=== PATIENT | male | born 1930 | race Caucasian/White ===

== ENCOUNTER 2016-09-21 10:10 | Inpatient (IN) | payer MEDICARE, BC ==
[2016-09-21] MEDS ORDERED: ALBUTEROL SULFATE 2.5 MG/0.5 ML VIAL.NEB IH ONE ×2 (10:18→10:20)
--- NOTE | 2016-09-21 10:20 | ERNOTE ---
[id number] home records Exam Limitations: physical impairment, dementia - Immun/Allergies/Home Medications Immunizations: IMMUNIZATION HX Immunizations Up to Date Yes History of Influenza Vaccine Yes Hx Pneumococcal Vaccination Yes Allergies/Adverse Reactions: Allergies Sulfa (Sulfonamide Antibiotics) Allergy (Severe, Verified 09/21/16 13:50) Hives promethazine HCl [From Phenergan] Allergy (Mild, Verified 09/21/16 13:50) Itching Iodinated Contrast Media - IV Dye Allergy (Unknown, Verified 09/21/16 13:50) Home Medications: HOME MEDICATIONS Acetaminophen [Tylenol 160 MG/5 Ml Liquid] 15 ml PEG Q6H 06/05/16 [Last Taken Unknown] Donepezil HCl [Aricept] 10 mg PEG DAILY 06/05/16 [Last Taken Unknown] L. 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 He has a PEG tube for feeding. He started vomiting yesterday? This morning at 08:00 he vomited and aspirated. Oxygen saturations were in the 70% after suctioning up to 80's. Per EMS he vomited one more time on their arrival, non since coming here. Date (Duration): 09/21/16 Time (Timing): 08:00 Review of Systems - Narrative Narrative: unobtainable - Patient's Past Medical History Patient History - Medical: Dementia Patient History - Cardiac/Respiratory: No pertinent hx, CVA/Stroke, Hypertension , Pneumonia Patient History - Cancer: No Hx of Cancer Patient History - Surgical Procedures: Other - Family History Mother Family History - Medical: , History Unknown Family History - Cardiac/Respiratory: No pertinent hx Family History - Cancer: Colon - 83 Father Family History - Medical: , History Unknown Family History - Cardiac/Respiratory: No pertinent hx Family History - Cancer: Lung - 85 - Social History Living Situations: detention Does anyone smoke in the home?: No Alcohol Use: none Drug Use: none - Immunizations Immunizations Up to Date: Yes Physical Exam - Physical Exam General Appearance: Present: wd/wn, alert, anxious Eye Exam: Normal inspection: bilateral, PERRL: bilateral Ears, Nose, Throat: Present: normal pharynx Respiratory: Present: rales, other - increased respiratory rate, rales audible on entering the room Cardiovascular/Chest: Present: regular rate, rhythm, no murmur Gastrointestinal/Abdominal: Present: soft, abnormal bowel sounds - decreased. Absent: guarding Neurological Exam: Present: alert, other - non verbal, occasionally following with his eyes, non following commands, moves all extremities Skin Exam: Present: normal color, warm/dry ED Progress - Results and Orders Patient's Lab Results:: I have reviewed the patient's lab results. - Vital Signs Patient's Vital Signs:: I have reviewed the patient's vital signs. - X-Ray X-Ray #1 X-Ray: chest - bibasilar opacities Interpretation: Reviewed by me X-Ray #2 X-Ray: abdomen - abnormal bowel gas pattern, possible ileus Interpretation: Reviewed by me - Progress/Reassessment Progress Note-Subjective: 09/21/16 10:37 after albuterol treatment and suctioning, )2sat 93% on nonrebreather 09/21/16 10:55 O2sat 89% on 50% mask discussed with family 09/21/16 11:18 discussed ABG, prognosis, and BiPAP with family, agreed to Bipap, discussed code status son and daughter (present) want to discuss further with other daughter 09/21/16 11:29 discussed with suzie Ahmadi to admit for aspiration pneumonia Departure Clinical Impression: Aspiration pneumonia Qualifiers: Aspiration pneumonia type: due to gastric secretions Laterality: right Lung location: unspecified part of lung Qualified Code(s): J69.0 - Pneumonitis due to inhalation of food and vomit Acute respiratory failure Qualifiers: Respiratory failure complication: hypoxia and hypercapnia Qualified Code(s): J96.01 - Acute respiratory failure with hypoxia - Departure Disposition: [facility] Condition: Fair
[2016-09-21 10:37] LABS: Hematocrit 48.1 % (42.0-52.0); Hemoglobin 15.3 gm/dL (13.5-18.0); Mean Cell Volume 93.2 fl (78-100); Mean Corpuscular Hemoglobin 29.7 pg (27-31); Mean Corpuscular Hgb Conc 31.8 g/dl (32-36); Mean Platelet Volume 10.3 fl (6.0-9.5); Neutrophil # 16.3 K/mm3 (1.3-6.0); Neutrophil % 83.9 % (42-75.0); Platelet Count 323 K/mm3 (150-450); Red Blood Count 5.16 M/mm3 (4.7-6.0); Red Cell Distribution Width 13.1 % (11.5-14.0); White Blood Count 19.4 K/mm3 (4.0-10.5)
[2016-09-21 10:55] LABS: Albumin * 3.5 gm/dl (3.4-5.0); Anion Gap 13.1 mmol/L (6.8-13.8); BUN/Creatinine Ratio 19.6 (9.0-21.6); Bilirubin, Total 0.5 mg/dL (0.0-1.1); Ca. Corrected For Albumin 9.1 mg/dL (8.4-10.2); Potassium 4.1 mmol/L (3.4-4.6); Total Protein 8.4 gm/dL (6.2-8.2)
[2016-09-21] MEDS ORDERED: SODIUM CHLORIDE IV PRN (11:06)
[2016-09-21] MEDS ORDERED: AMPICILLIN SODIUM/SULBACTAM NA 1.5 GM in NORMAL SALINE 100 ML IV SCH ×2 (11:30→19:00)
[2016-09-21] MEDS ORDERED: NORMAL SALINE 1,000 ML IV PRN (13:45)
[2016-09-21] MEDS ORDERED: HEPARIN SODIUM,PORCINE 5,000 UNITS/ML VIAL SC SCH (15:00)
[2016-09-21] MEDS ORDERED: ALBUTEROL SULFATE/IPRATROPIUM 3 ML NEBU IH SCH (15:00)
[2016-09-21] MEDS ORDERED: ALBUTEROL SULFATE/IPRATROPIUM 3 ML NEBU IH PRN (15:19)
--- NOTE | 2016-09-21 15:20 | HP ---
Chief Complaint - Chief Complaint Date of Service: 09/21/16 Time of Service: 13:40 Chief Complaint: Aspiration and shortness of breath History of Present Illness: 86 years old male adm from the ER to med surg unit with family at the bedside. PMH significant for aspirated pneumonia, dementia, Alzheimer, CVA and respiratory failure. Per son while pt was at the [facility] he aspirated on his vomit. Associated s/s shortness of breath, unable to clear his throat, and loose stool when he vomited. per daughter pt have frequently aspirated on his saliva and often get meals orally along with the PEG tube feeding. Family plan is to keep pt comfortable for now until all other family members are available to decide on code status and vermin exterminator plan of care. They refused intubation as of current time. In ER Labs were remarkable WBC 19.4, lactic acid 3.0 with repeat of 8.5, he was given nebulizer treatment and IVF in ER. ABG noted PH 7.17 , Pco2 64, Po 51 he was placed on Bipap. - Patient's Past Medical History Patient History - Medical: Alzheimer's Disease, Dementia, Other - Mute, MRSA, pancreatitis Patient History - Cardiac/Respiratory: No pertinent hx, CVA/Stroke, Hypertension , Pneumonia - Aspiration Patient History - Cancer: No Hx of Cancer Patient History - Surgical Procedures: Other - Hernia repair - Family History Mother Family History - Medical: , History Unknown Family History - Cardiac/Respiratory: No pertinent hx Family History - Cancer: Colon - 83 Father Family History - Medical: , History Unknown Family History - Cardiac/Respiratory: No pertinent hx Family History - Cancer: Lung - 85 - Social History Living Situations: [facility] Does anyone smoke in the home?: No Smoking Status: Never smoker Have you smoked in the past 12 months: No Do you dip or chew tobacco: No Patient requests Smoking Cessation Consult: No Initiate information on Smoking Cessation: No Alcohol Use: none Drug Use: none Review Of Systems (GEN) - Review of Systems Generalized/Overall Review: Present: No Symptoms Reported EENTM: Present: No Symptoms Reported Respiratory: Present: Shortness of Breath Cardiac: Present: No Symptoms Reported Abdominal: Present: No Symptoms Reported Genitourinary: Present: No Symptoms Reported Musculoskeletal: Present: No Symptoms Reported Neurological: Present: No Symptoms Reported Skin: Present: No Symptoms Reported Endocrine: Present: No Symptoms Reported Additional Comments: Due to pt medical condition and he his mute: Information Per family report, pt have no other complaints while at the [facility] Immunizations: IMMUNIZATION HX Immunizations Up to Date Yes Allergies/Adverse Reactions: Allergies Allergy/AdvReac Type Severity Reaction Status Date / Time Sulfa (Sulfonamide Allergy Severe Hives Verified 09/21/16 13:50 Antibiotics) promethazine HCl Allergy Mild Itching Verified 09/21/16 13:50 [From Phenergan] Iodinated Contrast Media - Allergy Unknown Verified 09/21/16 13:50 IV Dye Home Medications: HOME MEDICATIONS Acetaminophen [Tylenol 160 MG/5 Ml Liquid] 15 ml PEG Q6H 06/05/16 [Last Taken Unknown] Donepezil HCl [Aricept] 10 mg PEG DAILY 06/05/16 [Last Taken Unknown] L. Rhamnosus GG/Inulin [Culturelle Capsule] 1 cap PEG DAILY 06/05/16 [Last Taken Unknown] Omeprazole [Prilosec] 10 ml PEG DAILY 06/05/16 [Last Taken Unknown] Cetirizine HCl [Zyrtec] 10 mg PO DAILY 09/21/16 [Last Taken Unknown] Cholecalciferol (Vitamin D3) [Vitamin D3] 1,000 unit PEG DAILY 09/21/16 [Last Taken Unknown] Exam - Exam Vital Signs: Vital Signs - Last Taken Temp 37.4 C 09/21/16 13:20 Pulse 112 H 09/21/16 13:20 Resp 38 H 09/21/16 13:20 BP 91/58 09/21/16 13:20 Pulse Ox 97 09/21/16 13:54 Constitutional: Present: Mild distress, Elderly, Looks Older than stated age ENT Exam: Present: dry mucous membranes Eye Exam: bilateral eye: PERRL Neck: Present: trachea midline Back Exam: Present: no CVA tenderness Respiratory: Present: decreased breath sounds, rales Cardiovascular/Chest: Present: normal peripheral pulses, regular rate, rhythm, no chest tenderness, no edema Peripheral Pulses: dorsalis-pedis (R): 3+, dorsalis-pedis (L): 3+ Abdomen: Present: Normal bowel sounds, soft, nontender, nondistended, other - PEG tube /Rectal: Present: Exam deferred Extremity: Present: non-tender, normal inspection, no pedal edema, no calf tenderness, normal capillary refill Skin Exam: Present: normal color, warm/dry, no cyanosis Neurologic: Present: aphasia Eye contact: Present: avoids eye contact Thoughts: Present: other - unable to assess Diagnostic Studies: Abnormal Lab Results 09/21/16 Range/Units 13:30 Lactic Acid, Venous 7.5 H* (0.4-2.0) mmol/L Laboratory Results WBC 19.4 K/mm3 (4.0-10.5) H 09/21/16 10:27 RBC 5.16 M/mm3 (4.7-6.0) 09/21/16 10:27 Hgb 15.3 gm/dL (13.5-18.0) 09/21/16 10:27 Hct 48.1 % (42.0-52.0) 09/21/16 10:27 MCV 93.2 fl (78-100) 09/21/16 10:27 MCH 29.7 pg (27-31) 09/21/16 10:27 MCHC 31.8 g/dl (32-36) L 09/21/16 10:27 RDW 13.1 % (11.5-14.0) 09/21/16 10:27 Plt Count 323 K/mm3 (150-450) 09/21/16 10:27 MPV 10.3 fl (6.0-9.5) H 09/21/16 10:27 Immature Gran % (Auto) 0.40 % (0.001-0.429) 09/21/16 10:27 Immature Gran # (Auto) 0.08 K/mm3 (0.000-0.0310) H 09/21/16 10:27 Neutrophils % 83.9 % (42-75.0) H 09/21/16 10:27 Lymphocytes % 12.7 % (20-51) L 09/21/16 10:27 Monocytes % 2.4 % (0.0-9) 09/21/16 10:27 Eosinophils % 0.3 % (0.0-3.0) 09/21/16 10:27 Basophils % 0.3 % (0.0-1.0) 09/21/16 10:27 Nucleated RBC % 0.0 k/mm3 (0-1) 09/21/16 10:27 Neutrophils # 16.3 K/mm3 (1.3-6.0) H 09/21/16 10:27 Lymphocytes # 2.5 k/mm3 (1.5-3.5) 09/21/16 10:27 Monocytes # 0.5 k/mm3 (0.0-1.0) 09/21/16 10:27 Eosinophils # 0.1 k/mm3 (0.0-0.7) 09/21/16 10:27 Absolute Basophils 0.1 k/mm3 (0.0-0.1) 09/21/16 10:27 pCO2 64.6 mmHg (35.0-48.0) H 09/21/16 11:00 pO2 51.6 mmHg (83.0-108.0) L 09/21/16 11:00 HCO3 22.8 mmol/L (21.0-28.0) 09/21/16 11:00 Total CO2 24.8 mmol/L (19.0-24.0) H 09/21/16 11:00 Base Excess -7.0 mmol/L (-2.0-3.0) L 09/21/16 11:00 ABG pH 7.17 (7.35-7.45) L* 09/21/16 11:00 ABG O2 Sat (Measured) 76.0 % (94.0-98.0) L 09/21/16 11:00 Sodium 139 mmol/L (132-142) 09/21/16 10:27 Plasma Sodium 141 mmol/L (130-142) 09/21/16 10:27 Potassium 4.1 mmol/L (3.4-4.6) 09/21/16 10:27 Chloride 100 mmol/L (97-106) 09/21/16 10:27 Carbon Dioxide 30.0 mmol/L (24-32.6) 09/21/16 10:27 Anion Gap 13.1 mmol/L (6.8-13.8) 09/21/16 10:27 BUN 27 mg/dL (6-23) H 09/21/16 10:27 Creatinine 1.38 mg/dL (0.4-1.4) 09/21/16 10:27 Est GFR (Non-Af Amer) 52 mL/min (60-130) L 09/21/16 10:27 BUN/Creatinine Ratio 19.6 (9.0-21.6) 09/21/16 10:27 Random Glucose 245 mg/dL (70-110) H 09/21/16 10:27 Lactic Acid, Venous 7.5 mmol/L (0.4-2.0) H* 09/21/16 13:30 Calcium 9.0 mg/dL (7.9-10.9) 09/21/16 10:27 Calcium Adj for Albumin 9.1 mg/dL (8.4-10.2) 09/21/16 10:27 Total Bilirubin 0.5 mg/dL (0.0-1.1) 09/21/16 10:27 AST 33 U/L (0-48) 09/21/16 10:27 ALT 38 U/L (19-67) 09/21/16 10:27 Alkaline Phosphatase 102 U/L (50-170) 09/21/16 10:27 Total Protein 8.4 gm/dL (6.2-8.2) H 09/21/16 10:27 Albumin 3.5 gm/dl (3.4-5.0) 09/21/16 10:27 Assessment/Plan - Narrative Narrative: Acute respiratory failure CXR: Hypoventilation, faint bibasilar opacities with diffuse hazy ground glass opacity. On adm ABG noted, pt spo2 75%----> 98% on Bipap Continue with Bipap and repeat ABG Duoneb PRN On adm lactic acid 3.0---->8.5 Repeated level, he was given nebulizer in ER. Aspirated pneumonia: secondary to [facility] reports of pt aspirating Pt have had aspirated pneumonia in the past, per family he had recurrent hospitalizations for aspiration pneumonia. He has a PEG tube and still get oral feeding at the [facility]. Continue with Unasyn Duoneb treatment and bIpap for comfort measures per family for now until they are able to talk with other members of the family Family unsure if they want pt to be intubate at this time and wishes for comfort measure until all other siblings are available to discuss medical state. Continue with duoneb treatments. CVA- stable comfort measures Alzheimer/ dementia comfort measures VTE ppx : heparin SQ Code status : Full code pt is still indecisive as to vermin exterminator plan - Assessment/Plan (1) Acute respiratory failure Problem: Acute Qualifiers: Respiratory failure complication: hypoxia and hypercapnia Qualified Code(s) : J96.01 - Acute respiratory failure with hypoxia; J96.02 - Acute respiratory failure with hypercapnia (2) Aspiration pneumonia Problem: Acute Qualifiers: Aspiration pneumonia type: due to gastric secretions Laterality: right Lung location: unspecified part of lung Qualified Code(s): J69.0 - Pneumonitis due to inhalation of food and vomit
[2016-09-21] MEDS ORDERED: DEXTROSE 5%-NORMAL SALINE 1,000 ML IV PRN (18:44)
[2016-09-21] MEDS ORDERED: AMPICILLIN SODIUM/SULBACTAM NA 3 GM in NORMAL SALINE 100 ML IV SCH (19:00)
[2016-09-21] MEDS ORDERED: LORazepam 2 MG/ML DISP.SYRIN IV PRN (22:56)
[2016-09-21] MEDS ORDERED: ATROPINE SULFATE 150 DROP BTL SL PRN (22:56)
[2016-09-21] MEDS ORDERED: ONDANSETRON HCL/PF 2 MG/ML VIAL IV PRN (22:56)
[2016-09-21] MEDS ORDERED: MORPHINE SULFATE 4 MG/ML SYRG IV PRN (22:56)
[2016-09-21 22:58] VITALS: BP 87/44
[2016-09-21] MEDS ORDERED: SCOPOLAMINE HYDROBROMIDE 1.5 MG PATC TD SCH (23:00)
--- NOTE | 2016-09-21 23:48 | DS ---
Discharge Summary - Provider Primary Care Provider: Santhosh Alaniz Admitting Clinician: Elmira Valle Attending Physician on Admission: Michelle Pop Pronouncing Clinician: Michelle Pop - Date and Time Date of : 09/21/16 Time of : 23:18 - Diagnosis/Cause of (1) Acute respiratory failure Problems: Acute - Summary Details (narrative): Comfort cares and DNR/DNI initiated after a lengthy discussion with the family about pt's poor prognosis. I was notified by nursing about 30-40 minutes later that pt had stopped breathing after comfort care initiation. No prn medications had been utilized. Pt auscultated for 1 minute. No respirations, no pulse & pupils were fixed. Estimated TOD 23.18. I offered condolences to the family members and they were all thankful to medical efforts done for their loved one. Procedures Performed: none - Additional Data Confirmation of as documented by pronouncing clinician: no pulse Family: at bedside Attending/PCP notified: Yes Was code activated: No Autopsy requested: No Ship Washer notified: No Organ Bank notified: Yes Advance Directives: Yes Hospice patient: No
--- NOTE | 2016-09-21 23:54 | PN ---
Subjective - Date and Time Seen Date: 09/21/16 Time: 21:40 Subjective Narrative: Mr. Rodney is a 86-yr-old WM pt with a long standing history of several hospital admissions and comorbidites involving: Alzheimer's, CVA, Dementia, GERD , HTN, UTI & Pneumonia. He has been residing at a long term care social worker Care Facility for the last 2 yrs. He basically is confined to bed & has been non- verbal for about 2 yrs largely due to advanced stage of Alzheimer's/Dementia. The EMR reveal numerous hospitalizations due to SOB and Aspiration Pneumonia and he ended up with a PEG tube being placed due to increased risk of aspiration. Today , pt was admitted under inpatient status due to signs of Acute respiratory failure & Aspiration Pneumonia. He was placed on the BIPAP in an attempt to correct his metabolic acidosis/respiratory acidosis/failure. It appears that the family did not want any intubation process, but wanted other aggressive treatments to be pursued for the pt. At 2130, Nursing reported to me about pt' s desaturations to 84% while on BIPAP with 100% of Fio2. Objective Objective Narrative: Pt evaluated. Was in obtundation state of consciousness and unable to arouse to external stimuli or sternum rub. He was diaphoretic. He was noted to have laboured breathing and severely diminished LS. Had a GCS score of 3. His lower extremities were very cool to touch with mottling of skin on the Knees. v.s 09/21/16 09/21/16 09/21/16 19:38 21:32 21:42 Temperature 36.6 C Pulse Rate 74 Respiratory 25 H Rate O2 Sat by Pulse 87 L Oximetry Oxygen Delivery Bi-pap Method Oxygen Flow 100 Rate Laboratory Tests 09/21/16 09/21/16 09/21/16 10:27 10:27 13:30 WBC 19.4 H MCHC 31.8 L Immature Gran # (Auto) 0.08 H Neutrophils % 83.9 H Lymphocytes % 12.7 L Lactic Acid, Venous 3.0 H* 7.5 H* 09/21/16 09/21/16 15:20 18:36 WBC MCHC Immature Gran # (Auto) Neutrophils % Lymphocytes % Lactic Acid, Venous 8.5 H* 9.3 H* Assessment/Plan - Problems/Diagnosis (1) Acute respiratory failure Problem: Acute Qualifiers: Respiratory failure complication: hypoxia and hypercapnia Qualified Code(s) : J96.01 - Acute respiratory failure with hypoxia; J96.02 - Acute respiratory failure with hypercapnia Narrative: I had a lengthy discussion with the pt's family/children: Ruma Zapata & Apryl about the fast declining situation their loved one was, and that was imminent. I informed them that their father was going into severe respiratory failure as he was on the maximum amount of Oxygen that can be delivered and he could not still keep his POX levels above 90% nor had he made any improvement with other additional setting changes on the BIPAP. I also explained that the attempt of non-invasive mechanical ventilation with a BIPAP was failing and that intubation would be the next treatment to be assumed. They all clearly stated that they did not want intubation to be pursued. I discussed the need to initiate comfort measures as mechanical ventilation without intubation would likely still lead to a treatment failure, given the already poor prognosis of the pt and long history of respiratory illnesses/infections. I gave them time to discuss options amongst the family. They later all agreed to Comfort Care measures and changed the code status from FULL to DNR/DNI.
== END 2016-09-21 23:18 | disposition expired | DRG 189 ==
LOC: ER 10:10 → MS 11:38
PROVIDERS: ADMIT Internal Medicine; ATTEND Internal Medicine
PROC: 4A033R1 Measurement of Arterial Saturation, Peripheral, Percutaneous Approach (ICD-10-PCS; principal; 2016-09-21)
DX: J96.01 Acute respiratory failure with hypoxia (principal); J69.0 Pneumonitis due to inhalation of food and vomit; E87.4 Mixed disorder of acid-base balance; G30.9 Alzheimer's disease, unspecified; F02.80 Dementia in other diseases classified elsewhere, unspecified severity, without behavioral disturbance, psychotic disturbance, mood disturbance, and anxiety; I69.320 Aphasia following cerebral infarction